=== PATIENT | male | born 1955 | race Caucasian/White ===

== ENCOUNTER 2018-11-10 10:51 | Emergency (ER) | payer MEDICAID ==
[~2018-11-10] VITALS: Ht 190.5 cm; Wt 118.2 kg
[~2018-11-10 10:51] MED LIST: SITA1TAB2 PO
[2018-11-10 10:52] VITALS: BP 143/96
[2018-11-10] MEDS ORDERED: dexamethasone 0.5 mg/5ml unit-dose oral solution PO STA (10:59)
[2018-11-10] MEDS ORDERED: HYDROcodone/acetaminophen 5mg/325mg tablet PO ONE (11:00)
[2018-11-10] MEDS ORDERED: ketorolac trometh inj. 60 MG/2 ML VIAL IM ONE (11:00)
[2018-11-10] MEDS ORDERED: dexamethasone sod phosphate 10mg/ml inj PO STA (11:21)
[2018-11-10] MEDS ORDERED: ACET-3067 PO (11:51)
--- NOTE | 2018-11-10 12:28 | NUR ---
DISCHARGE INSTRUCTIONS GIVEN TO PATIENT WITH PRESCRIPTION. PATIENT CAME TO ER PER AMBULANCE AND STATES THAT HE HAS NO TRANSPORTATION TO GET HOME. STATES THAT HE IS HAVING DIFFICULTY AMBULATING DUE TO PAST CVA WITH LEFT SIDE WEAKNESS AND SEVERE PAIN IN RIGHT KNEE. PATIENT WILL BE GAIT TESTED FOR SAFE DISCHARGE CRITERIA. UP TO [facility] AT THIS TIME.
--- NOTE | 2018-11-10 14:10 | NUR ---
UNABLE TO CONTACT CAB- PHONE JUST KEEPS RINGINIG.
--- NOTE | 2018-11-10 14:24 | NUR ---
Case management working on ride home for patient. Patient also already received prescriptions from [facility] at bedside.
== END 2018-11-10 16:53 | disposition home or self-care (01) ==
LOC: ER 10:52
DX: M25.561 Pain in right knee (principal); M10.9 Gout, unspecified; F17.200 Nicotine dependence, unspecified, uncomplicated; Z86.73 Personal history of transient ischemic attack (TIA), and cerebral infarction without residual deficits; Z79.899 Other long term (current) drug therapy
CPT/HCPCS: 73564; 96372; 99283; J1100; J1885; J8540

== ENCOUNTER 2023-06-04 10:03 | Emergency (ER) | payer MEDICARE, MEDICAID ==
[~2023-06-04] VITALS: Ht 190.5 cm; Wt 93.2 kg
[~2023-06-04 10:03] MED LIST changes: +ACET-75 PO; +AMLO-708 PO; +ASPI-1265 PO; +ATOR40TA72 PO; +CLOP75TA34 PO; +FOLI1TAB27 PO; +FURO20TA4 PO; +LISI20TA28 PO; +LORA10TA7 PO; +METF-1203 PO; -SITA1TAB2 PO
[2023-06-04 10:04] VITALS: TEMP 97.6
--- NOTE | 2023-06-04 12:18 | NUR ---
VASCULAR ULTRASOUND AT BEDSIDE.
[2023-06-04 12:53] LABS: BILIRUBIN,URINE NEGATIVE (Neg); CLARITY,URINE CLEAR (Clear); COLOR,URINE STRAW (Yellow); GLUCOSE, URINE NEGATIVE (Neg); KETONES,URINE NEGATIVE (Neg); LEUKOCYTE ESTERASE ,URINE NEGATIVE (Neg); NITRITES, URINE NEGATIVE (Neg); OCCULT BLOOD,URINE NEGATIVE (Neg); PH,URINE 5.5 (4.8-8.0); PROTEIN,URINE NEGATIVE (Neg); UROBILINOGEN,URINE 0.2 E.U/dL (0.2-1.0)
[2023-06-04 12:58] LABS: UA COLLECTION TYPE URINAL
[2023-06-04 13:16] LABS: BASOPHILS % (AUTO) 0.9 % (0-1); EOSINOPHILS # (AUTO) 0.3 X10'3 (0-0.9); EOSINOPHILS % (AUTO) 6.2 % (0-6); HEMATOCRIT 36.3 % (42.0-52.0); HEMOGLOBIN 12.2 g/dl (14.0-17.9); LYMPHOCYTES # (AUTO) 0.9 X10'3 (1.1-4.8); LYMPHOCYTES % (AUTO) 18.8 % (21-51); MEAN CORPUSCULAR HEMOGLOBIN 30.2 PG (27.0-31.0); MEAN CORPUSCULAR HGB CONC 33.6 g/dL (33.0-36.5); MEAN CORPUSCULAR VOLUME 89.7 FL (78-98); MEAN PLATELET VOLUME 8.2 FL (7.4-10.4); MONOCYTES # (AUTO) 0.3 X10'3 (0-0.9); MONOCYTES % (AUTO) 6.7 % (2-12); NEUTROPHILS # (AUTO) 3.2 X10'3 (1.8-7.7); NEUTROPHILS % (AUTO) 67.4 % (42-75); PLATELET COUNT 142 X10'3 (140-440); RED BLOOD COUNT 4.05 X10'6 (4.70-6.10); RED CELL DISTRIBUTION WIDTH 15.4 % (11.5-14.5); WHITE BLOOD COUNT 4.7 X10'3 (4.5-11.0)
[2023-06-04 13:39] LABS: ALANINE AMINOTRANSFERASE 27 U/L (12-78); ALBUMIN 3.6 G/DL (3.4-5.0); ALBUMIN/GLOBULIN RATIO 1.1 (1.1-1.5); ALKALINE PHOSPHATASE 135 IU/L (46-116); ANION GAP 8 (8-16); ASPARTATE AMINO TRANSFERASE 19 U/L (10-37); BILIRUBIN,TOTAL 0.4 MG/DL (0.1-1.0); BLOOD UREA NITROGEN 15 MG/DL (7-18); BUN/CREATININE RATIO 24.6 (10.0-20.0); CALCIUM 9.6 MG/DL (8.5-10.1); CHLORIDE 103 MMOL/L (99-107); CREATININE 0.61 MG/DL (0.60-1.10); GLUCOSE 87 MG/DL (70-104); MAGNESIUM 1.6 MG/DL (1.5-2.4); POTASSIUM 4.2 MMOL/L (3.5-5.1); SODIUM 141 MMOL/L (135-145); TOTAL CARBON DIOXIDE 29.8 MMOL/L (24-32); eCRCL 140 ML/MIN; eGFR > 90 ML/MIN
[2023-06-04 14:09] VITALS: BP 123/75; PULSE 73; RESP 18; O2SAT 100
== END 2023-06-04 15:12 | disposition home or self-care (01) ==
LOC: ER 10:03
DX: R60.0 Localized edema (principal)
CPT/HCPCS: 36415; 71045; 80053; 81003; 83605; 83735; 84145; 85025; 87040; 93971; 99284